=== PATIENT | female | born 1960 | race Caucasian/White ===

== ENCOUNTER 2019-01-08 11:23 | Emergency (ER) | payer OTHER ==
[2019-01-08 11:28] VITALS: BP 135/87; PULSE 104; TEMP 101.8; BMI 20.4
[2019-01-08] MEDS ORDERED: ACETAMINOPHEN 500 MG TABLET (FP) PO ONE (11:55)
[2019-01-08] MEDS ORDERED: ACETAMINOPHEN 325 MG TABLET (FP) ONE (11:57)
--- NOTE | 2019-01-08 12:01 | PDOC ---
History of Present Illness - General Chief Complaint: Cold Symptoms Stated Complaint: FEVER/SORE THROAT/ COUGH Time Seen by Provider: 01/08/19 11:42 - History of Present Illness Initial Comments: 01/08/19 11:59 58-year-old female with a past medical history of HIV presents for evaluation of cough fever 3 days. She has associated headaches with coughing and increased cough when she lays flat. Past History - Past Medical History Allergies/Adverse Reactions: Allergies Allergy/AdvReac Type Severity Reaction Status Date / Time No Known Allergies Allergy Verified 01/08/19 11:28 Home Medications: Ambulatory Orders Amox-Tr/K Cl [Augmentin - 875Mg Tablet] 1 tab PO BID #20 tablet 01/08/19 Guaifenesin Dm [Mucinex Dm -] 1 tab PO BID #60 tab.er.12h 01/08/19 Sulfamethoxazole/Trimethoprim [Bactrim Ds -] 1 tab PO BID #14 tablet 01/08/19 COPD: No Hypercholesterolemia: Yes Other medical history: HIV - Immunization History Immunization Up to Date: No - Suicide/Smoking/Psychosocial Hx Smoking History: Current every day smoker Have you smoked in the past 12 months: Yes Number of Cigarettes Smoked Daily: 5 Information on smoking cessation initiated: No Hx Alcohol Use: No Drug/Substance Use Hx: No Review of Systems - Review of Systems Constitutional: Yes: Fever Respiratory: Yes: Cough Neurological: Yes: Headache *Physical Exam - Vital Signs Last Vital Signs Temp Pulse Resp BP Pulse Ox 101.8 F H 104 H 16 135/87 97 01/08/19 11:26 01/08/19 11:26 01/08/19 11:26 01/08/19 11:26 01/08/19 11:26 - Physical Exam Comments: 01/08/19 12:01 HEAD: NC/AT EYES: Conjuntiva clear Ears: Canals and TM's normal NOSE: No d/c THROAT: Moist mucous membrances, oral pharanx clear, uvula midline NECK: Supple without adenopathy CARDIAC: S1 S2 LUNGS: Coarse rhonchi bilateral bases ABDOMEN: Soft NT ND MS: Full ROM in all joints without edema NEUROLOGIC: No gross sensory or motor deficits, NVID SKIN: Normal color and temperature no lesions or rashes ED Treatment Course - RADIOLOGY Radiology Studies Ordered: Category Date Time Status CHEST PA & LAT [RAD] Stat Radiology 01/08/19 11:58 Ordered Medical Decision Making - Medical Decision Making 01/08/19 12:16 HIV positive patient with normal CD4 count according to her last check. No discrete infiltrate on chest x-ray will treat for bronchitis with Bactrim and Augmentin as well as Mucinex have her follow-up with her PCP *DC/Admit/Observation/Transfer Diagnosis at time of Disposition: Acute bacterial bronchitis - Discharge Dispostion Disposition: HOME Condition at time of disposition: Stable Decision to Admit order: No - Referrals Referrals: Dennis Baptiste MD [Staff Physician] - - Patient Instructions Printed Discharge Instructions: Acute Bronchitis, DI for Bronchiolitis Additional Instructions: Please take the antibiotics and Mucinex as directed. Return to the emergency room for worsening symptoms and follow-up with your primary care physician in 1- 2 days without fail. Tylenol and Motrin as directed for fevers - Post Discharge Activity
== END 2019-01-08 12:49 | disposition home or self-care (01) ==
LOC: JERFT 11:23
DX: J40 Bronchitis, not specified as acute or chronic (principal); Z21 Asymptomatic human immunodeficiency virus [HIV] infection status
CPT/HCPCS: 71046-TC-FY; 99281-25

== ENCOUNTER 2019-01-09 21:25 | Inpatient (IN) | payer OTHER ==
--- NOTE | 2019-01-09 21:34 | PDOC ---
History of Present Illness - General Chief Complaint: Respiratory Stated Complaint: SENT BY PCP - History of Present Illness Initial Comments: The pt is a 58F w/ a history of HIV presents for evaluation of 4-5 days of fevers (Tm 102), malaise, and cough. She was evaluated 1.5 days ago and prescribed Augmentin and Bactrim for a RUL PNA. She reports persistent fevers to 102F at home despite Ibuprofen use (400mg Q4H last @ 1999). She reports being compliant w/ her HIV medications, denies ever having to be on ppx meds, reports her most recent CD4 to be 1000 (3 months ago). Denies vision changes, chest pain, vomiting, diarrhea, dysuria, hematuria, or blood in his stool. 01/09/19 21:33 Past History - Past Medical History Allergies/Adverse Reactions: Allergies Allergy/AdvReac Type Severity Reaction Status Date / Time No Known Allergies Allergy Verified 01/08/19 11:28 Home Medications: Ambulatory Orders Amox-Tr/K Cl [Augmentin - 875Mg Tablet] 1 tab PO BID #20 tablet 01/08/19 Guaifenesin Dm [Mucinex Dm -] 1 tab PO BID #60 tab.er.12h 01/08/19 Sulfamethoxazole/Trimethoprim [Bactrim Ds -] 1 tab PO BID #14 tablet 01/08/19 Aspirin [ASA -] 81 mg PO DAILY 01/10/19 Darunavir Ethanolate [Prezista] 800 mg PO DAILY 01/10/19 Raltegravir [Isentress -] 400 mg PO BID 01/10/19 Ritonavir [Norvir] 100 mg PO DAILY 01/10/19 Rosuvastatin [Crestor -] 5 mg PO DAILY 01/10/19 Valacyclovir HCl [Valtrex] 500 mg PO DAILY 01/10/19 clonazePAM [Klonopin -] 0.5 mg PO TID 01/10/19 COPD: No Hypercholesterolemia: Yes - Immunization History Immunization Up to Date: No - Suicide/Smoking/Psychosocial Hx Smoking History: Never smoked Have you smoked in the past 12 months: No Number of Cigarettes Smoked Daily: 5 Information on smoking cessation initiated: No Hx Alcohol Use: No Drug/Substance Use Hx: No Review of Systems - Review of Systems Able to Perform ROS?: Yes Comments:: GENERAL/CONSTITUTIONAL: No fever or chills. No weakness HEAD, EYES, EARS, NOSE AND THROAT: No change in vision. No ear pain or discharge. No sore throat CARDIOVASCULAR: No chest pain or shortness of breath RESPIRATORY: Denies cough, hemoptysis GASTROINTESTINAL: No nausea, vomiting, diarrhea or constipation GENITOURINARY: No dysuria, frequency, or change in urination MUSCULOSKELETAL: No joint or muscle swelling or pain. No neck or back pain SKIN: No rash NEUROLOGIC: No headache, vertigo, loss of consciousness, or change in strength/ sensation ENDOCRINE: No increased thirst. No abnormal weight change HEMATOLOGIC/LYMPHATIC: No anemia, easy bleeding, or history of blood clots ALLERGIC/IMMUNOLOGIC: No hives or skin allergy 01/09/19 21:34 Is the patient limited Wolof proficient: No *Physical Exam - Vital Signs Last Vital Signs Temp Pulse Resp BP Pulse Ox 100.4 F H 99 H 18 141/74 95 01/09/19 21:31 01/09/19 21:31 01/09/19 21:31 01/09/19 21:31 01/09/19 21:31 - Physical Exam Comments: GENERAL: Awake, alert, and oriented to person/place/time, in no acute distress HEAD: No signs of trauma, normocephalic, atraumatic EYES: PERRLA, EOMI, sclera anicteric, conjunctiva clear ENT: Hearing grossly normal, nares patent, oropharynx clear without exudates. No uvular deviation. Moist mucosa LUNGS: No distress, speaks in full sentences, clear to auscultation bilaterally HEART: Regular rate and rhythm, normal S1 and S2, no murmurs appreciated, peripheral pulses normal and equal bilaterally ABDOMEN: Soft, nontender, normoactive bowel sounds. No guarding, no rebound EXTREMITIES: Normal inspection, Normal range of motion, no edema. No clubbing or cyanosis NEUROLOGICAL: Cranial nerves II through XII grossly intact. Normal speech, normal gait, no focal sensorimotor deficits SKIN: Warm, Dry 01/09/19 21:34 ED Treatment Course - LABORATORY CBC & Chemistry Diagram: 01/09/19 22:50 01/09/19 22:50 Medical Decision Making - Medical Decision Making The pt is a 58F w/ a history of HIV on HAART who presents for evaluation of cough, malaise, and fevers (Tm 102) concerning for PNA/failure of outpt therapy ED Course CMP, CBC, Blood cultures, Quantiferon gold CTA chest to evaluate for PNA, cavitary lesion, PE 01/09/19 22:54 CT w/ b/l multifocal PNA No leukocytosis No anemia Lytes wnl LFTs unremarkable No ERICKA Ceftriaxone and Azithromycin for PNA Plan for admission for IV abx Pt signed out to Admitting team 01/10/19 01:32 *DC/Admit/Observation/Transfer Diagnosis at time of Disposition: Cough Fever Qualifiers: Fever type: unspecified Qualified Code(s): R50.9 - Fever, unspecified Pneumonia Qualifiers: Pneumonia type: due to unspecified organism Laterality: bilateral Lung location : unspecified part of lung Qualified Code(s): J18.9 - Pneumonia, unspecified organism - Discharge Dispostion Condition at time of disposition: Fair Decision to Admit order: Yes - Referrals - Patient Instructions - Post Discharge Activity
[2019-01-09] MEDS ORDERED: ONDANSETRON *ODT* 4 MG TABLET SL ONE (21:56)
[2019-01-09] MEDS ORDERED: ACETAMINOPHEN 325 MG TABLET (FP) PO ONE (21:56)
[2019-01-09] MEDS ORDERED: LACTATED RINGERS SOLUTION 1000 ML INFUS.BAG IV ONE (22:05)
--- NOTE | 2019-01-09 22:34 | PDOC ---
Documentation entered by Sergio Sharma SCRIBE, acting as scribe for Gris Neely DO. Gris Neely DO: This documentation has been prepared by the Zachary holly Xhesika, SCRIBE, under my direction and personally reviewed by me in its entirety. I confirm that the documentation accurately reflects all work, treatment, procedures, and medical decision making performed by me. Attending Attestation - Resident Resident Name: Lio Maynard - ED Attending Attestation I have performed the following: I have examined & evaluated the patient, The case was reviewed & discussed with the resident, I agree w/resident's findings & plan, Exceptions are as noted - HPI HPI: 01/09/19 22:34 The patient is a 58 year old female, with a significant PMH of HIV and HLD who presents to the emergency department with 5 days of cough, headaches, malaise, and a fever of 102. The patient states she is endorsing productive white/yellow sputum. The patient states she was seen here in the ED yesterday for similar symptoms, x-ray showed RUL infiltrate and was started on augmentin and bactrim. The patient states her symptoms have not subsided which prompted her arrival to theED today. The patient denies chest pain, shortness of breath,and dizziness. Denies chills , nausea, vomit, diarrhea and constipation. Denies dysuria, frequency, urgency and hematuria. Allergies: NKDA Social history: Current everyday smoker - Physicial Exam PE: 01/09/19 22:34 GENERAL: Awake, alert, and fully oriented, in no acute distress HEAD: No signs of trauma EYES: EOMI, sclera anicteric, conjunctiva clear ENT: hearing grossly normal, nares patent, oropharynx clear without exudates. Moist mucosa NECK: Normal ROM, supple, no lymphadenopathy, JVD, or masses LUNGS: Breath sounds equal, clear to auscultation bilaterally. No wheezes, and no crackles HEART: (+) tachycardic. Regular rate and rhythm, normal S1 and S2, no murmurs, rubs or gallops ABDOMEN: Soft, nontender, normoactive bowel sounds. No guarding, no rebound. No masses EXTREMITIES: Normal range of motion, no edema. No clubbing or cyanosis. No cords , erythema, or tenderness NEUROLOGICAL: Cranial nerves II through XII grossly intact. Normal speech, normal gait SKIN: Warm, Dry, normal turgor, no rashes or lesions noted. 01/09/19 22:36 - Medical Decision Making 01/09/19 22:30 I, Dr. Gris Neely, DO, attest that this document has been prepared under my direction and personally reviewed by me in its entirety. I further attest, that it accurately reflects all work, treatment, procedures and medical decision -making performed by me. 01/09/19 22:30 58yo female with hx of HIV + on HAART therapy with fever x 5 days and cough - productive sputum -white and yellow sputum -no blood in sputum -no hemoptysis -no cp -no wt loss -does c/o night sweats and having to change her clothing at night -pt dx with RUL infiltrate started on bactrim and amox yesterday -returns for persistent fevers today to 102 -pt states she took 2 doses of her abx since leaving the ED yesterday -all docs at [facility] -will send labs, ct chest -pt states viral load ~1000 -states cd4 was >250, can't remember exact number -will send cultures -will monitor and reassess 01/10/19 00:57 pt with RUL infiltrate on ct imaging will start iv abx cultures sent microblog sent to magdy for admission 01/10/19 01:31 ct shows multiple b/l consolidations consistent with pna 01/10/19 01:45 resident discussed the case with magdy
[2019-01-09] MEDS ORDERED: ONDANSETRON *ODT* 4 MG TABLET ONE (22:53)
[2019-01-09] MEDS ORDERED: SULFAMETHOXAZOLE/TRIMETHOPRIM 800MG/160MG D.S. TABLET PO ONE (22:57)
[2019-01-09] MEDS ORDERED: AMOX TR/POT CLAV 500MG/125MG TABLETS (FP) PO ONE (22:57)
[2019-01-09 22:59] LABS: BASO % 0.4 % (0-2.0); EOS % 1.4 % (0-4.5); HEMATOCRIT 37.5 % (32.4-45.2); HEMOGLOBIN 12.7 GM/dL (10.7-15.3); LYMPH % 20.4 % (8-40); MCH 32.6 pg (25.7-33.7); MCHC 33.9 g/dl (32.0-36.0); MEAN CELL VOLUME 96.1 fl (80-96); NEUT % 68.8 % (42.8-82.8); PLATELET COUNT 148 K/MM3 (134-434); RDW 12.9 % (11.6-15.6); WHITE BLOOD COUNT 7.3 K/mm3 (4.0-10.0)
[2019-01-09 23:27] LABS: ALBUMIN 3.4 g/dl (3.4-5.0); BILIRUBIN,TOTAL 0.3 mg/dL (0.2-1); BLOOD UREA NITROGEN 10.7 mg/dL (7-18); CALCIUM 8.5 mg/dL (8.5-10.1); CREATININE 0.9 mg/dL (0.55-1.3); POTASSIUM 3.8 mmol/L (3.5-5.1); TOT PROT 6.4 g/dl (6.4-8.2)
[2019-01-10] MEDS ORDERED: AZITHROMYCIN IVPB 500 MG in DEXTROSE 5%-WATER - 250 ML IVPB ONE (00:56)
[2019-01-10] MEDS ORDERED: CEFTRIAXONE 1 GM in DEXTROSE 5%-WATER - 100 ML IVPB ONE (00:56)
[2019-01-10] MEDS ORDERED: AZITHROMYCIN IVPB 500 MG/250 ML BAG IVPB ONE (01:43)
[2019-01-10] MEDS ORDERED: CEFTRIAXONE 1 GM/50 ML BAG ONE (01:43)
--- NOTE | 2019-01-10 02:04 | PN ---
Teaching Attending Note Name of Resident: Nghia Grimm ATTENDING PHYSICIAN STATEMENT I saw and evaluated the patient. I reviewed the resident's note and discussed the case with the resident. I agree with the resident's findings and plan as documented. SUBJECTIVE: Patient is a 58 year old woman with a PMH of Tobacco use, HIV disease and HLD who presents to the ER with 5 days of cough, headaches, malaise, and a fever of 102. The patient states she is has cough productive white/yellow sputum. She was seen here in the ER yesterday for similar symptoms, x-ray showed RUL infiltrate and was started on augmentin and bactrim. The patient states her symptoms have not subsided. The patient denies chest pain, shortness of breath, and dizziness. Denies chills, nausea, vomit, diarrhea and constipation. Denies dysuria, frequency, urgency and hematuria. OBJECTIVE: Alert Vital Signs Period Temp Pulse Resp BP Sys/Sarmiento Pulse Ox Last 24 Hr 100.4 F 99 18 141/74 95-96 HEENT: No Jaundice, eye redness or discharge, PERRLA, EOMI. Normocephalic, atraumatic. External ears are normal and hearing is grossly intact. No nasal discharge. Neck: Supple, nontender. No palpable adenopathy or thyromegaly. No JVD Chest: Good effort. Clear to auscultation and percussion. Heart: Regular. No S3, rub or murmur Abdomen: Not distended, soft, nontender and no HSM. No rebound or guarding. Normal bowel sounds. Ext: Peripheral pulses intact. No leg edema. Skin: Warm and dry. No petechiae, rash or ecchymosis. Neuro: Alert. Oriented x3. CN 2-12 grossly intact. Sensation grossly intact in all four extremities and DTR are symmetric. Psych: Appropriate mood and affect. Good insight. Current Medications Generic Name Dose Route Start Last Admin Trade Name Freq PRN Reason Stop Dose Admin Albuterol Sulfate 1 amp 01/10/19 03:38 Ventolin 0.083% Nebulizer Soln - NEB Q6H PRN SHORT OF BREATH/WHEEZING Darunavir 800 mg 01/10/19 10:00 Prezista - PO DAILY [facility] Enoxaparin Sodium 40 mg 01/10/19 10:00 Lovenox - SQ DAILY [facility] Azithromycin 500 mg in 250 mls @ 250 mls/hr 01/10/19 10:00 Zithromax 500mg Ivpb (Pre-Docked) IVPB DAILY [facility] Ceftriaxone Sodium 1 gm/ 50 mls @ 100 mls/hr 01/10/19 10:00 Dextrose IVPB DAILY [facility] Protocol Non-Formulary Medication 100 mg 01/10/19 10:00 Ritonavir [Norvir] PO DAILY [facility] Prednisone 40 mg 01/10/19 10:00 Deltasone - PO DAILY [facility] Raltegravir 400 mg 01/10/19 10:00 Isentress - PO BID [facility] Rosuvastatin Calcium 5 mg 01/10/19 10:00 Crestor - PO DAILY [facility] Home Medications Medication Instructions Recorded Amox-Tr/K Cl [Augmentin - 875Mg 1 tab PO BID #20 tablet 01/08/19 Tablet] Guaifenesin Dm [Mucinex Dm -] 1 tab PO BID #60 tab.er.12h 01/08/19 Sulfamethoxazole/Trimethoprim 1 tab PO BID #14 tablet 01/08/19 [Bactrim Ds -] Aspirin [ASA -] 81 mg PO DAILY 01/10/19 Darunavir Ethanolate [Prezista] 800 mg PO DAILY 01/10/19 Raltegravir [Isentress -] 400 mg PO BID 01/10/19 Ritonavir [Norvir] 100 mg PO DAILY 01/10/19 Rosuvastatin [Crestor -] 5 mg PO DAILY 01/10/19 Valacyclovir HCl [Valtrex] 500 mg PO DAILY 01/10/19 clonazePAM [Klonopin -] 0.5 mg PO TID 01/10/19 Abnormal Lab Results 01/09/19 01/09/19 22:50 22:50 MCV 96.1 H Anion Gap 6 L ASSESSMENT AND PLAN: 1. Pneumonia - CTA showed bilateral multifocal pneumonia, but no pulmonary embolism. Being treated with Duoneb, Prednisone, Rocephin and Azithromycin. Send urine for legionella antigen and sputum for culture. Continue HAART and comprehensive HIV care. Consult ID. Obtain recent viral load/CD4 count result from her PCP. 2. Tobacco Use Counseled on risks associated with tobacco use. We will provide patient all the necessary assistance to facilitate smoking cessation and prescribe Nicotine patch. 3. DVT prophylaxis - Lovenox 40 mg SQ q 24 hours. 4. Advance directives - Full code
--- NOTE | 2019-01-10 03:33 | HP ---
CHIEF COMPLAINT: productive cough PCP: HISTORY OF PRESENT ILLNESS: 58F of pmh of HLD, HIV(contracted from in ), claims to be compliant with HAART medications(Ritonavir, Raltegravir, Darunavir), h/o TB(dx , received full treatment), h/o shingles(2000), genital/oral herpes, h/o prior episode of PNA; presented to the ED on 01/08/19 with complaint of yellow sputum productive cough x4d with associated DORADO/fever/chills x5d. Has sick contact, son with cough. Denies recent travel. Has calf spasms with prolonged walking. Denies CP, SOB, abd pain, NVD, dysuria, constipation. Had colonoscopy in 2018 with no abn, instructed to return in 10ys. ER course was notable for: (1) Tmax 100.4F (2) s/p ceftriaxone, s/p azithromycin (3) BCX collected (4) Quantiferon collected Recent Travel: none PAST MEDICAL HISTORY: HTN, HLD, HIV, TB, PNA PAST SURGICAL HISTORY: -"eye" surgery in the 1960s -tubal ligation in the Social History: Smokin cig/daily for 10ys Alcohol: social Drugs: denies Family History: DM and HTN; no malignancy Allergies: denies No Known Allergies Allergy (Verified 01/08/19 11:28) HOME MEDICATIONS: Home Medications Medication Instructions Recorded Amox-Tr/K Cl [Augmentin - 875Mg 1 tab PO BID #20 tablet 01/08/19 Tablet] Guaifenesin Dm [Mucinex Dm -] 1 tab PO BID #60 tab.er.12h 01/08/19 Sulfamethoxazole/Trimethoprim 1 tab PO BID #14 tablet 01/08/19 [Bactrim Ds -] Aspirin [ASA -] 81 mg PO DAILY 01/10/19 Darunavir Ethanolate [Prezista] 800 mg PO DAILY 01/10/19 Raltegravir [Isentress -] 400 mg PO BID 01/10/19 Ritonavir [Norvir] 100 mg PO DAILY 01/10/19 Rosuvastatin [Crestor -] 5 mg PO DAILY 01/10/19 Valacyclovir HCl [Valtrex] 500 mg PO DAILY 01/10/19 clonazePAM [Klonopin -] 0.5 mg PO TID 01/10/19 REVIEW OF SYSTEMS CONSTITUTIONAL: positive for fever, chills, DORADO Absent: diaphoresis, generalized weakness, malaise, loss of appetite, weight change HEENT: Absent: rhinorrhea, nasal congestion, visual changes CARDIOVASCULAR: Absent: chest pain, palpitations, irregular heart rate, lightheadedness, peripheral edema RESPIRATORY: positive for productive cough Absent: cough, shortness of breath, dyspnea with exertion, orthopnea, wheezing, stridor, hemoptysis GASTROINTESTINAL: Absent: abdominal pain, abdominal distension, nausea, vomiting, diarrhea, constipation, hematochezia GENITOURINARY: Absent: dysuria, frequency, urgency, hesitancy, hematuria, flank pain, genital pain MUSCULOSKELETAL: calf spasm Absent: joint swelling, back pain, knee pain SKIN: Absent: rash HEMATOLOGIC/IMMUNOLOGIC: Absent: easy bleeding, lymphadenopathy, frequent infections ENDOCRINE: Absent: unexplained weight gain, unexplained weight loss NEUROLOGIC: Absent: headache, dizziness, unsteady gait, seizure PSYCHIATRIC: Absent: anxiety, depression PHYSICAL EXAMINATION Vital Signs - 24 hr 01/09/19 21:31 Temperature 100.4 F H Pulse Rate 99 H Respiratory 18 Rate Blood Pressure 141/74 O2 Sat by Pulse 95 Oximetry (%) GENERAL: Awake, alert, and fully oriented, in no acute distress. HEAD: Normal with no signs of trauma. No temporal wasting EYES: Pupils equal, round and reactive to light, extraocular movements intact, sclera anicteric, conjunctiva clear. EARS, NOSE, THROAT: Ears normal, nares patent. Moist mucous membranes. Tongue is w/o thrush NECK: Normal range of motion, supple without lymphadenopathy, or masses. LUNGS: B/l expiratory wheezes, Right lung w/ mild crackles. No accessory muscle use. HEART: Regular rate and rhythm, normal S1 and S2 without murmur, rub or gallop. ABDOMEN: Soft, nontender, not distended, no guarding, no rebound. Infraumbilical scar is well-healed MUSCULOSKELETAL: Normal range of motion at all joints. No bony deformities or tenderness. No CVA tenderness. UPPER EXTREMITIES: warm, well-perfused. No cyanosis. No peripheral edema. LOWER EXTREMITIES: 2+ pulses, warm, well-perfused. No calf tenderness. No peripheral edema. NEUROLOGICAL: Grossly normal. Normal speech. PSYCHIATRIC: Cooperative. Good eye contact. Appropriate mood and affect. SKIN: Warm, dry, normal turgor, no rashes or lesions noted. Laboratory Results - last 24 hr 01/09/19 01/09/19 22:50 22:50 WBC 7.3 RBC 3.90 Hgb 12.7 Hct 37.5 MCV 96.1 H MCH 32.6 MCHC 33.9 RDW 12.9 Plt Count 148 MPV 8.0 Absolute Neuts (auto) 5.0 Neutrophils % 68.8 Lymphocytes % 20.4 Monocytes % 9.0 Eosinophils % 1.4 Basophils % 0.4 Nucleated RBC % 0 Sodium 136 Potassium 3.8 Chloride 104 Carbon Dioxide 27 Anion Gap 6 L BUN 10.7 Creatinine 0.9 Est GFR (CKD-EPI)AfAm 81.11 Est GFR (CKD-EPI)NonAf 69.99 Random Glucose 106 Calcium 8.5 Total Bilirubin 0.3 AST 20 ALT 17 Alkaline Phosphatase 53 Total Protein 6.4 Albumin 3.4 ASSESSMENT/PLAN: 58F with pmh of HLD, HIV(contracted from in ), claims to be compliant with HAART medications(Ritonavir, Raltegravir, Darunavir), h/o TB(dx , received full treatment), h/o shingles(2000), genital/oral herpes, h/o prior episode of PNA; now admitted for cough likely 2/2 PNA. # Right upper lobe PNA >CXR(01/08/19): right upper lobe infiltrate >CTA Chest(01/10/19): Right upper lobe infiltrate - dc home Augmentin, bactrim - cw azithromycin, ceftriaxone - prednisone 40mg QD - albuterol PRN - fu Quantiferon Gold # HIV - cw Ritonavir, Raltegravir, Darunavir NEURO # no active issues at this time CARDIO # chronic HLD - cw home rosuvastatin - monitor vitals PULM # RUL PNA -- addressed above GI # no active issues FEN - regular diet - replete lytes PRN RENAL - monitor I/Os HEME # HIV -- addressed above # chronic herpes(oral/genital) - cw home valacyclovir DISPO - likely home pending resolution of above issues Nghia Grimm DO PGY-1 Medicine, PM Float [id number] 01/10/19 Visit type - Emergency Visit Emergency Visit: Yes ED Registration Date: 01/10/19 Care time: The patient presented to the Emergency Department on the above date and was hospitalized for further evaluation of their emergent condition. - New Patient This patient is new to me today: Yes Date on this admission: 01/10/19 - Critical Care Critical Care patient: No
[2019-01-10 05:24] VITALS: BMI 19.3
--- NOTE | 2019-01-10 07:57 | CON.ID ---
Consult Consult Specialty:: infectious disease Referred by:: hospitalist Reason for Consultation:: fever, cough - History of Present Illness Chief Complaint: fever and cough History of Present Illness: 58 yo female with well controlled HIV, history of positive PPD (porphylaxed with INH many years ago), +cigarette somoker with 5 day history of fever and cough no hemoptysis no nausea or vomiting no diarrhea reports she is followed at [facility] by Dr Prasad- on isentress/norvir and prizista - tcells "high", viral load undetectable RUL infiltrate on cxray and ct scan reports recent sick contact- brother who came to visit had a cold treated hep C denies recent hospitalizations denies PCP she was seen in ED on 01/08 with fever and cough, discharged on augmentin and bactrim returned the next day with persistent fever and cough - History Source History Provided By: Patient Limitations to Obtaining History: Poor Historian - Past Medical History Cardio/Vascular: Yes: Hyperlipdemia Pulmonary: Yes: Pneumonia (2 years ago at [facility]) Hepatobiliary: Yes: Hepatitis C ...: No Infectious Disease: Yes: HIV (sexual contact diagnosis 1991), Other (HSV) - Past Surgical History Past Surgical History: Yes: Tubal Ligation Additional Surgical History: eye surgery - Alcohol/Substance Use Hx Alcohol Use: No History of Substance Use: reports: None - Smoking History Smoking history: Current every day smoker Have you smoked in the past 12 months: Yes Aproximately how many cigarettes per day: 5 - Social History Usual Living Arrangement: With Child ADL: Independent Place of : [place] History of Recent Travel: Yes ([place] in September) Home Medications - Allergies Allergies/Adverse Reactions: Allergies Allergy/AdvReac Type Severity Reaction Status Date / Time No Known Allergies Allergy Verified 01/08/19 11:28 - Home Medications Home Medications: Ambulatory Orders Amox-Tr/K Cl [Augmentin - 875Mg Tablet] 1 tab PO BID #20 tablet 01/08/19 Guaifenesin Dm [Mucinex Dm -] 1 tab PO BID #60 tab.er.12h 01/08/19 Sulfamethoxazole/Trimethoprim [Bactrim Ds -] 1 tab PO BID #14 tablet 01/08/19 Aspirin [ASA -] 81 mg PO DAILY 01/10/19 Darunavir Ethanolate [Prezista] 800 mg PO DAILY 01/10/19 Raltegravir [Isentress -] 400 mg PO BID 01/10/19 Ritonavir [Norvir] 100 mg PO DAILY 01/10/19 Rosuvastatin [Crestor -] 5 mg PO DAILY 01/10/19 Valacyclovir HCl [Valtrex] 500 mg PO DAILY 01/10/19 clonazePAM [Klonopin -] 0.5 mg PO TID 01/10/19 Family Disease History - Family Disease History Family Disease History: CA: Father (kidney) Review of Systems - Review of Systems Constitutional: reports: Fever. denies: Loss of Appetite, Night Sweats Eyes: reports: No Symptoms HENT: reports: No Symptoms. denies: Difficult Swallowing Neck: reports: No Symptoms Cardiovascular: reports: No Symptoms. denies: Chest Pain, Edema, Palpitations Respiratory: reports: Cough. denies: Hemoptysis Gastrointestinal: reports: No Symptoms Genitourinary: reports: No Symptoms Integumentary: reports: No Symptoms Neurological: reports: No Symptoms Physical Exam Vital Signs: Vital Signs Temperature 100.8 F H 01/10/19 05:00 Pulse Rate 76 01/10/19 05:00 Respiratory Rate 18 01/10/19 05:00 Blood Pressure 114/70 01/10/19 05:00 O2 Sat by Pulse Oximetry (%) 97 01/10/19 03:50 Constitutional: Yes: Well Nourished, No Distress, Calm, Other (coughing) Eyes: Yes: Conjunctiva Clear HENT: Yes: Atraumatic, Normocephalic. No: Pharyngeal Erythema, Thrush Neck: Yes: Supple, Trachea Midline. No: Lymphadenopathy Cardiovascular: Yes: Regular Rate and Rhythm Respiratory: Yes: Rhonchi (bilaterally) Gastrointestinal: Yes: Normal Bowel Sounds, Soft ...Rectal Exam: Yes: Deferred Musculoskeletal: Yes: WNL Extremities: Yes: WNL Edema: No Integumentary: Yes: WNL Psychiatric: Yes: Alert, Oriented Labs: CBC, BMP 01/09/19 22:50 Laboratory Tests 01/09/19 22:50 WBC 7.3 Hgb 12.7 Hct 37.5 Plt Count 148 Imaging - Results Chest X-ray: Report Reviewed, Image Reviewed (RUL infiltrate) Cat Scan: Pending (RUL infiltrate), Image Reviewed Problem List - Problems (1) Fever Code(s): R50.9 - FEVER, UNSPECIFIED Qualifiers: Fever type: unspecified Qualified Code(s): R50.9 - Fever, unspecified (2) Pneumonia Code(s): J18.9 - PNEUMONIA, UNSPECIFIED ORGANISM Qualifiers: Pneumonia type: due to unspecified organism Laterality: bilateral Lung location: unspecified part of lung Qualified Code(s): J18.9 - Pneumonia, unspecified organism (3) HIV (human immunodeficiency virus infection) Code(s): B20 - HUMAN IMMUNODEFICIENCY VIRUS [HIV] DISEASE Assessment/Plan RUL infiltrate in patient with positive PPD by history and HIV suspect CAP given acuity of symptoms but would continue AFB isolation and obtain sputum AFB/NAAT continue rocephin/zithromax check ekg (qt) f/u cultures check urinary antigen legionella/pneumococcal f/u cultures blood and sputum continue ART- continue valtrex
[2019-01-10] MEDS ORDERED: DEXTROSE 5%-WATER - 50 ML IVPB ONE (10:15)
[2019-01-10] MEDS ORDERED: cefTRIAXone SODIUM 1 GM VIAL ONE (10:15)
[2019-01-10] MEDS: CEFTRIAXONE 1 GM in DEXTROSE 5%-WATER - 50 ML IVPB SCH (10:18)
[2019-01-10] MEDS: ROSUVASTATIN CA 5 MG TABLET (FP) PO SCH (10:18)
[2019-01-10] MEDS: predniSONE 20 MG TABLET (UD) PO SCH (10:18)
[2019-01-10] MEDS: ENOXAPARIN NA (PORCINE) 40 MG/0.4 ML DISP.SYRIN SQ SCH (10:18)
[2019-01-10] MEDS: RALTEGRAVIR POTASSIUM 400 MG TAB PO SCH ×2 (10:19→22:05)
[2019-01-10] MEDS: valACYclovir HCL 500 MG TABLET (FP) PO SCH (10:19)
[2019-01-10] MEDS: RITONAVIR 100 MG TABLET PO SCH (10:19)
[2019-01-10] MEDS: DARUNAVIR ETHANOLATE 800 MG TAB PO SCH (10:20)
[2019-01-10] MEDS ORDERED: PT OWN MED DRAWER 7, Y5N ONE ×3 (10:33→21:51)
[2019-01-10] MEDS: AZITHROMYCIN IVPB 500 MG/250 ML BAG IVPB SCH (11:20)
--- NOTE | 2019-01-10 16:53 | EKG ---
Test Reason : Blood Pressure : / mmHG Vent. Rate : 090 BPM Atrial Rate : 090 BPM P-R Int : 164 ms QRS Dur : 098 ms QT Int : 354 ms P-R-T Axes : 073 078 074 degrees QTc Int : 433 ms POOR DATA QUALITY, INTERPRETATION MAY BE ADVERSELY AFFECTED NORMAL SINUS RHYTHM INCOMPLETE RIGHT BUNDLE BRANCH BLOCK NO PREVIOUS ECGS AVAILABLE Confirmed by CLARISSA BARNES MD ([id number]) on 01/10/2019 4:52:57 PM Referred By: Brendan LUGO Confirmed By:CLARISSA BARNES MD
[2019-01-11 07:16] LABS: HEMOGLOBIN 12.8 GM/dL (10.7-15.3); MCH 32.5 pg (25.7-33.7); MCHC 33.8 g/dl (32.0-36.0); MEAN CELL VOLUME 96.3 fl (80-96); MEAN PLT VOLUME 7.7 fl (7.5-11.1); PLATELET COUNT 201 K/MM3 (134-434); RBC 3.94 M/mm3 (3.60-5.2); RDW 13.2 % (11.6-15.6); WHITE BLOOD COUNT 8.3 K/mm3 (4.0-10.0)
[2019-01-11 08:03] LABS: BLOOD UREA NITROGEN 12.7 mg/dL (7-18); CREATININE 0.9 mg/dL (0.55-1.3); POTASSIUM 3.7 mmol/L (3.5-5.1)
[2019-01-11] MEDS ORDERED: cefTRIAXone SODIUM 1 GM VIAL ONE (09:52)
[2019-01-11] MEDS ORDERED: DEXTROSE 5%-WATER - 50 ML IVPB ONE (09:52)
[2019-01-11] MEDS: predniSONE 20 MG TABLET (UD) PO SCH (10:04)
[2019-01-11 10:05] LABS: CALCIUM 9.4 mg/dL (8.5-10.1); PHOSPHOROUS 4.2 mg/dL (2.5-4.9)
[2019-01-11] MEDS: ROSUVASTATIN CA 5 MG TABLET (FP) PO SCH (10:05)
[2019-01-11] MEDS: ENOXAPARIN NA (PORCINE) 40 MG/0.4 ML DISP.SYRIN SQ SCH (10:05)
[2019-01-11] MEDS: CEFTRIAXONE 1 GM in DEXTROSE 5%-WATER - 50 ML IVPB SCH (10:05)
[2019-01-11] MEDS: RALTEGRAVIR POTASSIUM 400 MG TAB PO SCH ×2 (10:06→21:40)
[2019-01-11] MEDS: RITONAVIR 100 MG TABLET PO SCH (10:06)
[2019-01-11] MEDS: valACYclovir HCL 500 MG TABLET (FP) PO SCH (10:07)
[2019-01-11] MEDS: DARUNAVIR ETHANOLATE 800 MG TAB PO SCH (10:07)
--- NOTE | 2019-01-11 10:18 | PN ---
Progress Note (short form) - Note Progress Note: still coughing sweats last night Vital Signs Period Temp Pulse Resp BP Sys/Sarmiento Pulse Ox Last 24 Hr 98.2 F-98.8 F 86-110 18-18 103-125/50-78 cor-rrr lungs bilateral rhonchi abd soft,nt ext no edema CBC, BMP 01/11/19 06:00 01/11/19 06:00 Microbiology 01/10/19 08:00 Sputum - Expectorated Gram Stain - Final 01/10/19 08:00 Sputum - Expectorated Sputum Culture - Preliminary NORMAL RESPIRATORY ALIA 01/10/19 14:20 Sputum - Expectorated AFB Smear Concentration - Preliminary 01/10/19 14:20 Sputum - Expectorated Mycobacterial Culture - Preliminary 01/09/19 22:50 Blood - Peripheral Venous Blood Culture - Preliminary NO GROWTH OBTAINED AFTER 24 HOURS, INCUBATION TO CONTINUE FOR 4 DAYS. 01/09/19 22:50 Blood - Peripheral Venous Blood Culture - Preliminary NO GROWTH OBTAINED AFTER 24 HOURS, INCUBATION TO CONTINUE FOR 4 DAYS. 01/10/19 10:00 Urine For Antigen Detection Legionella Antigen - Final 01/10/19 10:00 Urine For Antigen Detection Streptococcus pneumoniae Antigen (M - Final a/p pneumonia history of Positive PPD HIV continue rocephin zithromax continue to collect sputum afb continue afb isolation Problem List - Problems (1) Fever Code(s): R50.9 - FEVER, UNSPECIFIED Qualifiers: Fever type: unspecified Qualified Code(s): R50.9 - Fever, unspecified (2) Pneumonia Code(s): J18.9 - PNEUMONIA, UNSPECIFIED ORGANISM Qualifiers: Pneumonia type: due to unspecified organism Laterality: bilateral Lung location: unspecified part of lung Qualified Code(s): J18.9 - Pneumonia, unspecified organism (3) HIV (human immunodeficiency virus infection) Code(s): B20 - HUMAN IMMUNODEFICIENCY VIRUS [HIV] DISEASE
[2019-01-11] MEDS: AZITHROMYCIN IVPB 500 MG/250 ML BAG IVPB SCH (10:48)
--- NOTE | 2019-01-11 15:30 | PN ---
Physical Exam: SUBJECTIVE: Patient seen and examined this AM at the bedside. No acute events overnight. Patient not currently on O2 treatment. Pt had night sweats last PM as per ID. OBJECTIVE: Vital Signs Period Temp Pulse Resp BP Sys/Sarmiento Pulse Ox Last 24 Hr 98.2 F-98.8 F 72-87 18-20 110-132/78-82 GENERAL: The patient is awake, alert, and fully oriented, in no acute distress. HEAD: Normal with no signs of trauma. NECK: supple. LUNGS: Inspiratory and expiratory wheezes noticed on exam, worse in the bases HEART: Regular rate and rhythm, S1, S2 without murmur, rub or gallop. ABDOMEN: Soft, slght tenderness noted due to excessive coughing nondistended, normoactive bowel sounds, no guarding, no rebound, no masses. EXTREMITIES: warm, well-perfused, no edema. NEUROLOGICAL: Normal speech, gait not observed. PSYCH: Normal mood, normal affect. SKIN: Warm, dry, no rashes or lesions noted Laboratory Results - last 24 hr 01/10/19 01/11/19 01/11/19 05:44 06:00 06:00 WBC 7.3 8.3 RBC 3.94 Hgb 12.8 Hct 38.0 MCV 96.3 H MCH 32.5 MCHC 33.8 RDW 13.2 Plt Count 201 D MPV 7.7 Absolute Lymphs (auto) 1.6 Lymphocytes 22 Nucleated RBCs TNP Sodium 140 Potassium 3.7 Chloride 104 Carbon Dioxide 30 Anion Gap 6 L BUN 12.7 Creatinine 0.9 Est GFR (CKD-EPI)AfAm 81.11 Est GFR (CKD-EPI)NonAf 69.99 Random Glucose 106 Calcium 9.4 Phosphorus 4.2 Magnesium 3.0 H Absolute CD3 Count 1038 % CD3+ Lymphocytes 64.9 Absolute CD4 [place] 685 % CD4+ Lymphocyte 42.8 CD4/CD8 Ratio 1.81 % CD8+ Lymphocyte 23.6 Absolute CD8 Count 378 Active Medications Generic Name Dose Route Start Last Admin Trade Name Freq PRN Reason Stop Dose Admin Albuterol Sulfate 1 amp 01/10/19 03:38 Ventolin 0.083% Nebulizer Soln - NEB Q6H PRN SHORT OF BREATH/WHEEZING Darunavir 800 mg 01/10/19 10:00 01/11/19 10:07 Prezista - PO 800 mg DAILY IFEOMA Administration Enoxaparin Sodium 40 mg 01/10/19 10:00 01/11/19 10:05 Lovenox - SQ 40 mg DAILY IFEOMA Administration Azithromycin 500 mg in 250 mls @ 250 mls/hr 01/10/19 10:00 01/11/19 10:48 Zithromax 500mg Ivpb (Pre-Docked) IVPB 250 mls/hr DAILY IFEOMA Administration Ceftriaxone Sodium 1 gm/ 50 mls @ 100 mls/hr 01/10/19 10:00 01/11/19 10:05 Dextrose IVPB 100 mls/hr DAILY IFEOMA Administration Protocol Prednisone 40 mg 01/10/19 10:00 01/11/19 10:04 Deltasone - PO 40 mg DAILY IFEOMA Administration Raltegravir 400 mg 01/10/19 10:00 01/11/19 10:06 Isentress - PO 400 mg BID IFEOMA Administration Ritonavir 100 mg 01/10/19 10:00 01/11/19 10:06 Norvir - PO 100 mg DAILY IFEOMA Administration Rosuvastatin Calcium 5 mg 01/10/19 10:00 01/11/19 10:05 Crestor - PO 5 mg DAILY IFEOMA Administration Valacyclovir HCl 500 mg 01/10/19 10:00 01/11/19 10:07 Valtrex - PO 500 mg DAILY IFEOMA Administration ASSESSMENT/PLAN: 58 y/o F with a PMH of HLD, HIV(contracted from in ), claims to be compliant with HAART medications(Ritonavir, Raltegravir, Darunavir), h/o TB (dx , received full treatment), h/o shingles(2000), genital/oral herpes, h/o prior episode of PNA; presented to the ED on 01/08/19 initially c/o cough and fever for 3 days with associated headaches. Pt was sent home on augmentin and bactrim but returned a day later c/o of yellow sputum productive cough for 4 days with associated headache, fever, chills. #Pneumonia - pt is being treated with ceftriaxone and azithromycin (day 3). Was sent home on augmentin and bactrim initially so day 4 total abx. - UA legionella negative. Pneumococcal negative. Gram stain positive for Staph. - AFB sputum pending, quantiferon gold pending. - B.C.'s negative -CXR: Rt upper lobe infiltrate -CTA- B/l noncavitary pulmonary infiltrates and prominent atherosclerotic aortic mural irregularity. - afebrile normal wbc but will continue to monitor - continue airborne precautions #HIV - continue HAART meds #HSV oral and genital - continue with valtrex #HLD - Continue w crestor 5mg PO daily as prescribed #smoking - would recommend smoking cessation. #FEN -fluids not indicated at this time. - will continue to monitor for any electrolyte abnormalities. Prophylaxis: DVT- Lovenox 40mg SQ GI: not indicated at this time. Dispo: Spoke to [facility] ID department (Dr. Nghia Powell) and notified them abt this pt's status and what were doing as per patients daughters request. Spoke to family regarding patient status and treatment. Visit type - Emergency Visit Emergency Visit: No - New Patient This patient is new to me today: Yes Date on this admission: 01/11/19 - Critical Care Critical Care patient: No - Discharge Referral Referred to [facility] Med P.C.: No
--- NOTE | 2019-01-11 18:50 | PN ---
Teaching Attending Note Name of Resident: Amy Madden ATTENDING PHYSICIAN STATEMENT I saw and evaluated the patient. I reviewed the resident's note and discussed the case with the resident. I agree with the resident's findings and plan as documented. SUBJECTIVE: Patient stated she has been coughing and does not feel well in general. OBJECTIVE: Vital Signs Temperature 98.6 F 01/11/19 14:00 Pulse Rate 82 01/11/19 14:00 Respiratory Rate 20 01/11/19 14:00 Blood Pressure 107/70 01/11/19 14:00 O2 Sat by Pulse Oximetry (%) 97 01/10/19 03:50 GENERAL: The patient is awake, alert, and fully oriented, in no acute distress. HEAD: Normal with no signs of trauma. NECK: supple. LUNGS:positive for expiratory wheeze, decreased BS at the basis. HEART: Regular rate and rhythm, S1, S2 without murmur, rub or gallop. ABDOMEN: Soft, NT,ND, no guarding, no rebound, no masses. EXTREMITIES: warm, well-perfused, no edema. NEUROLOGICAL: Normal speech, gait not observed. PSYCH: Normal mood, normal affect. SKIN: Warm, dry, no rashes or lesions noted CBCD WBC 8.3 K/mm3 (4.0-10.0) 01/11/19 06:00 RBC 3.94 M/mm3 (3.60-5.2) 01/11/19 06:00 Hgb 12.8 GM/dL (10.7-15.3) 01/11/19 06:00 Hct 38.0 % (32.4-45.2) 01/11/19 06:00 MCV 96.3 fl (80-96) H 01/11/19 06:00 MCHC 33.8 g/dl (32.0-36.0) 01/11/19 06:00 RDW 13.2 % (11.6-15.6) 01/11/19 06:00 Plt Count 201 K/MM3 (134-434) D 01/11/19 06:00 MPV 7.7 fl (7.5-11.1) 01/11/19 06:00 CMP Sodium 140 mmol/L (136-145) 01/11/19 06:00 Potassium 3.7 mmol/L (3.5-5.1) 01/11/19 06:00 Chloride 104 mmol/L (98-107) 01/11/19 06:00 Carbon Dioxide 30 mmol/L (21-32) 01/11/19 06:00 Anion Gap 6 MMOL/L (8-16) L 01/11/19 06:00 BUN 12.7 mg/dL (7-18) 01/11/19 06:00 Creatinine 0.9 mg/dL (0.55-1.3) 01/11/19 06:00 Random Glucose 106 mg/dL (74-106) 01/11/19 06:00 Calcium 9.4 mg/dL (8.5-10.1) 01/11/19 06:00 Total Bilirubin 0.3 mg/dL (0.2-1) 01/09/19 22:50 AST 20 U/L (15-37) 01/09/19 22:50 ALT 17 U/L (13-61) 01/09/19 22:50 Alkaline Phosphatase 53 U/L (45-117) 01/09/19 22:50 Total Protein 6.4 g/dl (6.4-8.2) 01/09/19 22:50 Albumin 3.4 g/dl (3.4-5.0) 01/09/19 22:50 Current Medications Generic Name Dose Route Start Last Admin Trade Name Freq PRN Reason Stop Dose Admin Albuterol Sulfate 1 amp 01/10/19 03:38 Ventolin 0.083% Nebulizer Soln - NEB Q6H PRN SHORT OF BREATH/WHEEZING Darunavir 800 mg 01/10/19 10:00 01/11/19 10:07 Prezista - PO 800 mg DAILY IFEOMA Administration Enoxaparin Sodium 40 mg 01/10/19 10:00 01/11/19 10:05 Lovenox - SQ 40 mg DAILY IFEOMA Administration Azithromycin 500 mg in 250 mls @ 250 mls/hr 01/10/19 10:00 01/11/19 10:48 Zithromax 500mg Ivpb (Pre-Docked) IVPB 250 mls/hr DAILY IFEOMA Administration Ceftriaxone Sodium 1 gm/ 50 mls @ 100 mls/hr 01/10/19 10:00 01/11/19 10:05 Dextrose IVPB 100 mls/hr DAILY IFEOMA Administration Protocol Prednisone 40 mg 01/10/19 10:00 01/11/19 10:04 Deltasone - PO 40 mg DAILY IFEOMA Administration Raltegravir 400 mg 01/10/19 10:00 01/11/19 10:06 Isentress - PO 400 mg BID IFEOMA Administration Ritonavir 100 mg 01/10/19 10:00 01/11/19 10:06 Norvir - PO 100 mg DAILY IFEOMA Administration Rosuvastatin Calcium 5 mg 01/10/19 10:00 01/11/19 10:05 Crestor - PO 5 mg DAILY IFEOMA Administration Valacyclovir HCl 500 mg 01/10/19 10:00 01/11/19 10:07 Valtrex - PO 500 mg DAILY IFEOMA Administration Home Medications Medication Instructions Recorded Amox-Tr/K Cl [Augmentin - 875Mg 1 tab PO BID #20 tablet 01/08/19 Tablet] Guaifenesin Dm [Mucinex Dm -] 1 tab PO BID #60 tab.er.12h 01/08/19 Sulfamethoxazole/Trimethoprim 1 tab PO BID #14 tablet 01/08/19 [Bactrim Ds -] Aspirin [ASA -] 81 mg PO DAILY 01/10/19 Darunavir Ethanolate [Prezista] 800 mg PO DAILY 01/10/19 Raltegravir [Isentress -] 400 mg PO BID 01/10/19 Ritonavir [Norvir] 100 mg PO DAILY 01/10/19 Rosuvastatin [Crestor -] 5 mg PO DAILY 01/10/19 Valacyclovir HCl [Valtrex] 500 mg PO DAILY 01/10/19 clonazePAM [Klonopin -] 0.5 mg PO TID 01/10/19 ASSESSMENT AND PLAN: Patient is a 58yo female with well controlled HIV, history of positive PPD ( porphylaxed with INH many years ago), presented with 5 day history of fever and cough. #Acute RUL infiltrate with positive PPD ( prophylaxed with INH many years ago) by history and HIV . ID on the case. # CAP: On rocephin/zithromax; urinary antigen legionella/pneumococcal negative , f/u cultures blood and sputum # AFB: pending isolation and obtain sputum AFB/NAAT # HIV: continue ART ,continue valtrex. DVT Px: Lovenox
[2019-01-11] MEDS ORDERED: PT OWN MED DRAWER 7, Y5N ONE (23:03)
[2019-01-12] MEDS: ACETAMINOPHEN 325 MG TABLET (FP) PO PRN ×2 (03:26→21:39)
[2019-01-12] MEDS: ALBUTEROL SO4 0.083% IH SOL 2.5 MG/3 ML VIAL.NEB. NEB PRN ×3 (03:53→23:31)
[2019-01-12 08:19] LABS: BASO % 0.6 % (0-2.0); EOS % 0.3 % (0-4.5); HEMATOCRIT 32.8 % (32.4-45.2); HEMOGLOBIN 11.1 GM/dL (10.7-15.3); LYMPH % 43.6 % (8-40); MCH 32.5 pg (25.7-33.7); MCHC 33.9 g/dl (32.0-36.0); MEAN CELL VOLUME 95.8 fl (80-96); MEAN PLT VOLUME 7.9 fl (7.5-11.1); MONO % 10.1 % (3.8-10.2); NEUT % 45.4 % (42.8-82.8); RBC 3.42 M/mm3 (3.60-5.2); RDW 13.2 % (11.6-15.6); WHITE BLOOD COUNT 8.9 K/mm3 (4.0-10.0)
[2019-01-12 08:59] LABS: BLOOD UREA NITROGEN 15.4 mg/dL (7-18); CREATININE 0.7 mg/dL (0.55-1.3)
[2019-01-12 09:00] LABS: ALBUMIN 3.1 g/dl (3.4-5.0); BILIRUBIN,TOTAL 0.2 mg/dL (0.2-1); CALCIUM 9.1 mg/dL (8.5-10.1); POTASSIUM 3.8 mmol/L (3.5-5.1)
[2019-01-12 09:20] LABS: PLATELET COUNT 204 K/MM3 (134-434)
[2019-01-12] MEDS ORDERED: PT OWN MED DRAWER 7, Y5N ONE ×2 (10:31→21:36)
[2019-01-12] MEDS: ENOXAPARIN NA (PORCINE) 40 MG/0.4 ML DISP.SYRIN SQ SCH (10:40)
[2019-01-12] MEDS: valACYclovir HCL 500 MG TABLET (FP) PO SCH (10:40)
[2019-01-12] MEDS: AZITHROMYCIN IVPB 500 MG/250 ML BAG IVPB SCH (10:40)
[2019-01-12] MEDS: predniSONE 20 MG TABLET (UD) PO SCH (10:41)
[2019-01-12] MEDS: RITONAVIR 100 MG TABLET PO SCH (10:41)
[2019-01-12] MEDS: ROSUVASTATIN CA 5 MG TABLET (FP) PO SCH (10:41)
[2019-01-12] MEDS: RALTEGRAVIR POTASSIUM 400 MG TAB PO SCH ×2 (10:42→21:39)
[2019-01-12] MEDS: DARUNAVIR ETHANOLATE 800 MG TAB PO SCH (10:42)
[2019-01-12] MEDS ORDERED: DEXTROSE 5%-WATER - 50 ML IVPB ONE (12:09)
[2019-01-12] MEDS ORDERED: cefTRIAXone SODIUM 1 GM VIAL ONE (12:09)
[2019-01-12] MEDS ORDERED: INSULIN (NOVOLOG) ASPART 100 UNITS/ML 10ML VIAL ONE (12:16)
[2019-01-12] MEDS: CEFTRIAXONE 1 GM in DEXTROSE 5%-WATER - 50 ML IVPB SCH (13:48)
[2019-01-12] MEDS: clonazePAM 0.5 MG TABLET PO SCH (15:23)
--- NOTE | 2019-01-12 17:19 | PN ---
Progress Note (short form) - Note Progress Note: Patient is comfortable with no acute distress, positive for coughing. No fever or chills Vital Signs Temperature 98.9 F 01/12/19 14:00 Pulse Rate 88 01/12/19 14:00 Respiratory Rate 18 01/12/19 14:00 Blood Pressure 100/60 01/12/19 14:00 O2 Sat by Pulse Oximetry (%) 98 01/12/19 09:00 GENERAL: The patient is awake, alert, and fully oriented, in no acute distress. HEAD: Normal with no signs of trauma. NECK: supple. LUNGS: Inspiratory and expiratory wheezes noticed on exam, worse in the bases HEART: Regular rate and rhythm, S1, S2 without murmur, rub or gallop. ABDOMEN: Soft, NT,ND, no guarding, no rebound, no masses. EXTREMITIES: warm, well-perfused, no edema. NEUROLOGICAL: Normal speech, gait not observed. PSYCH: Normal mood, normal affect. SKIN: Warm, dry, no rashes or lesions noted CBCD WBC 8.9 K/mm3 (4.0-10.0) 01/12/19 06:30 RBC 3.42 M/mm3 (3.60-5.2) L 01/12/19 06:30 Hgb 11.1 GM/dL (10.7-15.3) 01/12/19 06:30 Hct 32.8 % (32.4-45.2) 01/12/19 06:30 MCV 95.8 fl (80-96) 01/12/19 06:30 MCHC 33.9 g/dl (32.0-36.0) 01/12/19 06:30 RDW 13.2 % (11.6-15.6) 01/12/19 06:30 Plt Count 204 K/MM3 (134-434) 01/12/19 06:30 MPV 7.9 fl (7.5-11.1) 01/12/19 06:30 CMP Sodium 140 mmol/L (136-145) 01/12/19 06:30 Potassium 3.8 mmol/L (3.5-5.1) 01/12/19 06:30 Chloride 104 mmol/L (98-107) 01/12/19 06:30 Carbon Dioxide 27 mmol/L (21-32) 01/12/19 06:30 Anion Gap 10 MMOL/L (8-16) 01/12/19 06:30 BUN 15.4 mg/dL (7-18) 01/12/19 06:30 Creatinine 0.7 mg/dL (0.55-1.3) 01/12/19 06:30 Random Glucose 89 mg/dL (74-106) 01/12/19 06:30 Calcium 9.1 mg/dL (8.5-10.1) 01/12/19 06:30 Total Bilirubin 0.2 mg/dL (0.2-1) 01/12/19 06:30 AST 16 U/L (15-37) 01/12/19 06:30 ALT 17 U/L (13-61) 01/12/19 06:30 Alkaline Phosphatase 46 U/L (45-117) 01/12/19 06:30 Total Protein 6.0 g/dl (6.4-8.2) L 01/12/19 06:30 Albumin 3.1 g/dl (3.4-5.0) L 01/12/19 06:30 Current Medications Generic Name Dose Route Start Last Admin Trade Name Freq PRN Reason Stop Dose Admin Acetaminophen 650 mg 01/12/19 03:15 01/12/19 03:26 Tylenol - PO 650 mg Q6H PRN Administration PAIN OR FEVER Albuterol Sulfate 1 amp 01/10/19 03:38 01/12/19 12:20 Ventolin 0.083% Nebulizer Soln - NEB 1 amp Q6H PRN Administration SHORT OF BREATH/WHEEZING Clonazepam 0.5 mg 01/12/19 15:30 01/12/19 15:23 Klonopin - PO 0.5 mg AM IFEOMA Administration Clonazepam 1 mg 01/12/19 15:08 Klonopin - PO HS PRN ANXIETY Darunavir 800 mg 01/10/19 10:00 01/12/19 10:42 Prezista - PO 800 mg DAILY IFEOMA Administration Enoxaparin Sodium 40 mg 01/10/19 10:00 01/12/19 10:40 Lovenox - SQ 40 mg DAILY IFEOMA Administration Azithromycin 500 mg in 250 mls @ 250 mls/hr 01/10/19 10:00 01/12/19 10:40 Zithromax 500mg Ivpb (Pre-Docked) IVPB 250 mls/hr DAILY IFEOMA Administration Ceftriaxone Sodium 1 gm/ 50 mls @ 100 mls/hr 01/10/19 10:00 01/12/19 13:48 Dextrose IVPB 100 mls/hr DAILY IFEOMA Administration Protocol Prednisone 40 mg 01/10/19 10:00 01/12/19 10:41 Deltasone - PO 40 mg DAILY IFEOMA Administration Raltegravir 400 mg 01/10/19 10:00 01/12/19 10:42 Isentress - PO 400 mg BID IFEOMA Administration Ritonavir 100 mg 01/10/19 10:00 01/12/19 10:41 Norvir - PO 100 mg DAILY IFEOMA Administration Rosuvastatin Calcium 5 mg 01/10/19 10:00 01/12/19 10:41 Crestor - PO 5 mg DAILY IFEOMA Administration Valacyclovir HCl 500 mg 01/10/19 10:00 01/12/19 10:40 Valtrex - PO 500 mg DAILY IFEOMA Administration Home Medications Medication Instructions Recorded Amox-Tr/K Cl [Augmentin - 875Mg 1 tab PO BID #20 tablet 01/08/19 Tablet] Guaifenesin Dm [Mucinex Dm -] 1 tab PO BID #60 tab.er.12h 01/08/19 Sulfamethoxazole/Trimethoprim 1 tab PO BID #14 tablet 01/08/19 [Bactrim Ds -] Aspirin [ASA -] 81 mg PO DAILY 01/10/19 Darunavir Ethanolate [Prezista] 800 mg PO DAILY 01/10/19 Raltegravir [Isentress -] 400 mg PO BID 01/10/19 Ritonavir [Norvir] 100 mg PO DAILY 01/10/19 Rosuvastatin [Crestor -] 5 mg PO DAILY 01/10/19 Valacyclovir HCl [Valtrex] 500 mg PO DAILY 01/10/19 clonazePAM [Klonopin -] 0.5 mg PO TID 01/10/19 ASSESSMENT AND PLAN: Patient is a 58yo female with well controlled HIV, history of positive PPD ( porphylaxed with INH many years ago), presented with 5 day history of fever and cough. #Acute RUL infiltrate with positive PPD ( prophylaxed with INH many years ago) by history and HIV . ID on the case. # CAP: On rocephin/zithromax; urinary antigen legionella/pneumococcal negative # AFB: pending # HIV: continue ART DVT Px: Lovenox Visit type - Emergency Visit Emergency Visit: Yes ED Registration Date: 01/10/19 Care time: The patient presented to the Emergency Department on the above date and was hospitalized for further evaluation of their emergent condition. - New Patient This patient is new to me today: No - Critical Care Critical Care patient: No - Discharge Referral Referred to [facility] Med P.C.: No
[2019-01-12] MEDS: clonazePAM 0.5 MG TABLET PO PRN (21:39)
[2019-01-13] MEDS ORDERED: DEXTROSE 5%-WATER - 50 ML IVPB ONE (09:40)
[2019-01-13] MEDS ORDERED: cefTRIAXone SODIUM 1 GM VIAL ONE (09:40)
[2019-01-13] MEDS ORDERED: PT OWN MED DRAWER 7, Y5N ONE (09:40)
[2019-01-13] MEDS: ENOXAPARIN NA (PORCINE) 40 MG/0.4 ML DISP.SYRIN SQ SCH (09:45)
[2019-01-13] MEDS: clonazePAM 0.5 MG TABLET PO SCH (09:45)
[2019-01-13] MEDS: ROSUVASTATIN CA 5 MG TABLET (FP) PO SCH (09:45)
[2019-01-13] MEDS: predniSONE 20 MG TABLET (UD) PO SCH (09:45)
[2019-01-13] MEDS: AZITHROMYCIN IVPB 500 MG/250 ML BAG IVPB SCH (09:45)
[2019-01-13] MEDS: DARUNAVIR ETHANOLATE 800 MG TAB PO SCH (09:46)
[2019-01-13] MEDS: valACYclovir HCL 500 MG TABLET (FP) PO SCH (09:46)
[2019-01-13] MEDS: RALTEGRAVIR POTASSIUM 400 MG TAB PO SCH ×2 (09:46→21:42)
[2019-01-13] MEDS: RITONAVIR 100 MG TABLET PO SCH (09:46)
[2019-01-13] MEDS: CEFTRIAXONE 1 GM in DEXTROSE 5%-WATER - 50 ML IVPB SCH (11:07)
--- NOTE | 2019-01-13 11:51 | PN ---
Progress Note, Physician History of Present Illness: AWAKE, ALERT SEATED IN BED C/O COUGH PRODUCTIVE OF WHITISH SPUTUM NO HEMOPTYSIS NO C/O DYSPNEA/ CHEST PAIN NO FEVER/ CHIILLS - Current Medication List Current Medications: Active Medications Acetaminophen (Tylenol -) 650 mg PO Q6H PRN PRN Reason: PAIN OR FEVER Last Admin: 01/12/19 21:39 Dose: 650 mg Albuterol Sulfate (Ventolin 0.083% Nebulizer Soln -) 1 amp NEB Q6H PRN PRN Reason: SHORT OF BREATH/WHEEZING Last Admin: 01/12/19 23:31 Dose: 1 amp Clonazepam (Klonopin -) 0.5 mg PO AM IFEOMA Last Admin: 01/13/19 09:45 Dose: 0.5 mg Clonazepam (Klonopin -) 1 mg PO HS PRN PRN Reason: ANXIETY Last Admin: 01/12/19 21:39 Dose: 1 mg Darunavir (Prezista -) 800 mg PO DAILY [facility] Last Admin: 01/13/19 09:46 Dose: 800 mg Enoxaparin Sodium (Lovenox -) 40 mg SQ DAILY [facility] Last Admin: 01/13/19 09:45 Dose: 40 mg Azithromycin (Zithromax 500mg Ivpb (Pre-Docked)) 500 mg in 250 mls @ 250 mls/ hr IVPB DAILY [facility] Last Admin: 01/13/19 09:45 Dose: 250 mls/hr Ceftriaxone Sodium 1 gm/ (Dextrose) 50 mls @ 100 mls/hr IVPB DAILY [facility]; Protocol Last Admin: 01/13/19 11:07 Dose: 100 mls/hr Prednisone (Deltasone -) 40 mg PO DAILY [facility] Last Admin: 01/13/19 09:45 Dose: 40 mg Raltegravir (Isentress -) 400 mg PO BID [facility] Last Admin: 01/13/19 09:46 Dose: 400 mg Ritonavir (Norvir -) 100 mg PO DAILY [facility] Last Admin: 01/13/19 09:46 Dose: 100 mg Rosuvastatin Calcium (Crestor -) 5 mg PO DAILY [facility] Last Admin: 01/13/19 09:45 Dose: 5 mg Valacyclovir HCl (Valtrex -) 500 mg PO DAILY [facility] Last Admin: 01/13/19 09:46 Dose: 500 mg - Objective Vital Signs: Vital Signs Temperature 97.9 F 01/13/19 09:44 Pulse Rate 82 01/13/19 09:44 Respiratory Rate 18 01/13/19 09:44 Blood Pressure 143/78 01/13/19 09:44 O2 Sat by Pulse Oximetry (%) 98 01/13/19 09:00 Constitutional: Yes: No Distress Eyes: Yes: Conjunctiva Clear Cardiovascular: Yes: Regular Rate and Rhythm, S1, S2 Respiratory: Yes: CTA Bilaterally Gastrointestinal: Yes: Normal Bowel Sounds, Soft. No: Tenderness Labs: CBC, BMP 01/12/19 06:30 01/12/19 06:30 Assessment/Plan RUL PNEUMONIA HX +PPD HIV AWAIT SPUTUM AFB CONTINUE ZITHROMAX/ CEFTRIAXONE
--- NOTE | 2019-01-13 16:43 | PN ---
Physical Exam: SUBJECTIVE: Patient seen and examined at bedside. Pt wants to go home as soon as possible. Pt in no acute distress and no acute events overnight. OBJECTIVE: Vital Signs Period Temp Pulse Resp BP Sys/Sarmiento Pulse Ox Last 24 Hr 97.9 F-99.6 F 74-90 18-20 110-143/64-78 98-98 GENERAL: The patient is awake, alert, and fully oriented, in no acute distress. HEAD: Normal with no signs of trauma. EYES: extraocular movements grossly intact, sclera anicteric, conjunctiva clear. No ptosis. NECK: gross full range of motion, supple. LUNGS: Breath sounds equal, clear to auscultation bilaterally, no wheezes, no crackles, no accessory muscle use. HEART: Regular rate and rhythm, S1, S2 without murmur, rub or gallop. ABDOMEN: Soft, nontender, nondistended, normoactive bowel sounds, no guarding, no rebound, no masses. EXTREMITIES: 2+ pulses, warm, well-perfused, no edema. NEUROLOGICAL: Cranial nerves II through XII grossly intact. Normal speech, gait not observed. PSYCH: Normal mood, normal affect. SKIN: Warm, dry, well perfused. Active Medications Generic Name Dose Route Start Last Admin Trade Name Freq PRN Reason Stop Dose Admin Acetaminophen 650 mg 01/12/19 03:15 01/12/19 21:39 Tylenol - PO 650 mg Q6H PRN Administration PAIN OR FEVER Albuterol Sulfate 1 amp 01/10/19 03:38 01/12/19 23:31 Ventolin 0.083% Nebulizer Soln - NEB 1 amp Q6H PRN Administration SHORT OF BREATH/WHEEZING Clonazepam 0.5 mg 01/12/19 15:30 01/13/19 09:45 Klonopin - PO 0.5 mg AM IFEOMA Administration Clonazepam 1 mg 01/12/19 15:08 01/12/19 21:39 Klonopin - PO 1 mg HS PRN Administration ANXIETY Darunavir 800 mg 01/10/19 10:00 01/13/19 09:46 Prezista - PO 800 mg DAILY IFEOMA Administration Enoxaparin Sodium 40 mg 01/10/19 10:00 01/13/19 09:45 Lovenox - SQ 40 mg DAILY IFEOMA Administration Azithromycin 500 mg in 250 mls @ 250 mls/hr 01/10/19 10:00 01/13/19 09:45 Zithromax 500mg Ivpb (Pre-Docked) IVPB 250 mls/hr DAILY IFEOMA Administration Ceftriaxone Sodium 1 gm/ 50 mls @ 100 mls/hr 01/10/19 10:00 01/13/19 11:07 Dextrose IVPB 100 mls/hr DAILY IFEOMA Administration Protocol Prednisone 40 mg 01/10/19 10:00 01/13/19 09:45 Deltasone - PO 40 mg DAILY IFEOMA Administration Raltegravir 400 mg 01/10/19 10:00 01/13/19 09:46 Isentress - PO 400 mg BID IFEOMA Administration Ritonavir 100 mg 01/10/19 10:00 01/13/19 09:46 Norvir - PO 100 mg DAILY IFEOMA Administration Rosuvastatin Calcium 5 mg 01/10/19 10:00 01/13/19 09:45 Crestor - PO 5 mg DAILY IFEOMA Administration Valacyclovir HCl 500 mg 01/10/19 10:00 01/13/19 09:46 Valtrex - PO 500 mg DAILY IFEOMA Administration CBC, BMP 01/12/19 06:30 01/12/19 06:30 ASSESSMENT/PLAN: 58 y/o F with a PMH of HLD, HIV(contracted from in ), claims to be compliant with HAART medications(Ritonavir, Raltegravir, Darunavir), h/o TB (dx , received full treatment), h/o shingles(2000), genital/oral herpes, h/o prior episode of PNA; presented to the ED on 01/08/19 initially c/o cough and fever for 3 days with associated headaches. Pt was sent home on augmentin and bactrim but returned a day later c/o of yellow sputum productive cough for 4 days with associated headache, fever, chills. #Pneumonia - pt is being treated with ceftriaxone and azithromycin (day 5). - UA legionella negative. Pneumococcal negative. Gram stain positive for Staph. - AFB sputum pending, quantiferon gold negative for TB. - B.C.'s negative -CXR: Rt upper lobe infiltrate -CTA- B/l noncavitary pulmonary infiltrates and prominent atherosclerotic aortic mural irregularity. - afebrile normal wbc but will continue to monitor - continue airborne precautions #HIV - continue HAART meds #HSV oral and genital - continue with valtrex #HLD - Continue w crestor 5mg PO daily as prescribed #smoking - would recommend smoking cessation. #FEN -fluids not indicated at this time. - will continue to monitor for any electrolyte abnormalities. - regular diet Prophylaxis: DVT- Lovenox 40mg SQ GI: not indicated at this time. Visit type - Emergency Visit Emergency Visit: No - New Patient This patient is new to me today: No - Critical Care Critical Care patient: No - Discharge Referral Referred to [facility] No
--- NOTE | 2019-01-13 19:06 | PN ---
Teaching Attending Note Name of Resident: Bro Rhodes ATTENDING PHYSICIAN STATEMENT I saw and evaluated the patient. I reviewed the resident's note and discussed the case with the resident. I agree with the resident's findings and plan as documented. SUBJECTIVE: Patient is comfortable with no acute distress, except coughing, no fever or chills. OBJECTIVE: Vital Signs Temperature 98.4 F 01/13/19 17:40 Pulse Rate 76 01/13/19 17:40 Respiratory Rate 18 01/13/19 17:40 Blood Pressure 111/65 01/13/19 17:40 O2 Sat by Pulse Oximetry (%) 98 01/13/19 09:00 GENERAL: The patient is awake, alert, and fully oriented, in no acute distress. HEAD: Normal with no signs of trauma. NECK: supple. LUNGS: expiratory wheezes , otherwise GAE BL , deminished air entry bl. HEART: Regular rate and rhythm, S1, S2 without murmur, rub or gallop. ABDOMEN: Soft, NT,ND, no guarding, no rebound, no masses. EXTREMITIES: warm, well-perfused, no edema. NEUROLOGICAL: Normal speech, gait not observed. PSYCH: Normal mood, normal affect. SKIN: Warm, dry, no rashes or lesions noted CBCD WBC 8.9 K/mm3 (4.0-10.0) 01/12/19 06:30 RBC 3.42 M/mm3 (3.60-5.2) L 01/12/19 06:30 Hgb 11.1 GM/dL (10.7-15.3) 01/12/19 06:30 Hct 32.8 % (32.4-45.2) 01/12/19 06:30 MCV 95.8 fl (80-96) 01/12/19 06:30 MCHC 33.9 g/dl (32.0-36.0) 01/12/19 06:30 RDW 13.2 % (11.6-15.6) 01/12/19 06:30 Plt Count 204 K/MM3 (134-434) 01/12/19 06:30 MPV 7.9 fl (7.5-11.1) 01/12/19 06:30 CMP Sodium 140 mmol/L (136-145) 01/12/19 06:30 Potassium 3.8 mmol/L (3.5-5.1) 01/12/19 06:30 Chloride 104 mmol/L (98-107) 01/12/19 06:30 Carbon Dioxide 27 mmol/L (21-32) 01/12/19 06:30 Anion Gap 10 MMOL/L (8-16) 01/12/19 06:30 BUN 15.4 mg/dL (7-18) 01/12/19 06:30 Creatinine 0.7 mg/dL (0.55-1.3) 01/12/19 06:30 Random Glucose 89 mg/dL (74-106) 01/12/19 06:30 Calcium 9.1 mg/dL (8.5-10.1) 01/12/19 06:30 Total Bilirubin 0.2 mg/dL (0.2-1) 01/12/19 06:30 AST 16 U/L (15-37) 01/12/19 06:30 ALT 17 U/L (13-61) 01/12/19 06:30 Alkaline Phosphatase 46 U/L (45-117) 01/12/19 06:30 Total Protein 6.0 g/dl (6.4-8.2) L 01/12/19 06:30 Albumin 3.1 g/dl (3.4-5.0) L 01/12/19 06:30 Current Medications Generic Name Dose Route Start Last Admin Trade Name Freq PRN Reason Stop Dose Admin Acetaminophen 650 mg 01/12/19 03:15 01/12/19 21:39 Tylenol - PO 650 mg Q6H PRN Administration PAIN OR FEVER Albuterol Sulfate 1 amp 01/10/19 03:38 01/12/19 23:31 Ventolin 0.083% Nebulizer Soln - NEB 1 amp Q6H PRN Administration SHORT OF BREATH/WHEEZING Clonazepam 0.5 mg 01/12/19 15:30 01/13/19 09:45 Klonopin - PO 0.5 mg AM IFEOMA Administration Clonazepam 1 mg 01/12/19 15:08 01/12/19 21:39 Klonopin - PO 1 mg HS PRN Administration ANXIETY Darunavir 800 mg 01/10/19 10:00 01/13/19 09:46 Prezista - PO 800 mg DAILY IFEOMA Administration Enoxaparin Sodium 40 mg 01/10/19 10:00 01/13/19 09:45 Lovenox - SQ 40 mg DAILY IFEOMA Administration Azithromycin 500 mg in 250 mls @ 250 mls/hr 01/10/19 10:00 01/13/19 09:45 Zithromax 500mg Ivpb (Pre-Docked) IVPB 250 mls/hr DAILY IFEOMA Administration Ceftriaxone Sodium 1 gm/ 50 mls @ 100 mls/hr 01/10/19 10:00 01/13/19 11:07 Dextrose IVPB 100 mls/hr DAILY IFEOMA Administration Protocol Prednisone 40 mg 01/10/19 10:00 01/13/19 09:45 Deltasone - PO 40 mg DAILY IFEOMA Administration Raltegravir 400 mg 01/10/19 10:00 01/13/19 09:46 Isentress - PO 400 mg BID IFEOMA Administration Ritonavir 100 mg 01/10/19 10:00 01/13/19 09:46 Norvir - PO 100 mg DAILY IFEOMA Administration Rosuvastatin Calcium 5 mg 01/10/19 10:00 01/13/19 09:45 Crestor - PO 5 mg DAILY IFEOMA Administration Valacyclovir HCl 500 mg 01/10/19 10:00 01/13/19 09:46 Valtrex - PO 500 mg DAILY IFEOMA Administration Home Medications Medication Instructions Recorded Amox-Tr/K Cl [Augmentin - 875Mg 1 tab PO BID #20 tablet 01/08/19 Tablet] Guaifenesin Dm [Mucinex Dm -] 1 tab PO BID #60 tab.er.12h 01/08/19 Sulfamethoxazole/Trimethoprim 1 tab PO BID #14 tablet 01/08/19 [Bactrim Ds -] Aspirin [ASA -] 81 mg PO DAILY 01/10/19 Darunavir Ethanolate [Prezista] 800 mg PO DAILY 01/10/19 Raltegravir [Isentress -] 400 mg PO BID 01/10/19 Ritonavir [Norvir] 100 mg PO DAILY 01/10/19 Rosuvastatin [Crestor -] 5 mg PO DAILY 01/10/19 Valacyclovir HCl [Valtrex] 500 mg PO DAILY 01/10/19 clonazePAM [Klonopin -] 0.5 mg PO TID 01/10/19 Microbiology 01/10/19 14:20 Sputum - Expectorated AFB Smear Concentration - Final 01/10/19 14:20 Sputum - Expectorated Mycobacterial Culture - Preliminary 01/12/19 06:36 Sputum - Expectorated AFB Smear Concentration - Preliminary 01/12/19 06:36 Sputum - Expectorated Mycobacterial Culture - Preliminary 01/11/19 09:30 Sputum - Expectorated AFB Smear Concentration - Preliminary 01/11/19 09:30 Sputum - Expectorated Mycobacterial Culture - Preliminary 01/09/19 22:50 Blood - Peripheral Venous Blood Culture - Preliminary NO GROWTH OBTAINED AFTER 96 HOURS, INCUBATION TO CONTINUE FOR 1 DAYS. 01/09/19 22:50 Blood - Peripheral Venous Blood Culture - Preliminary NO GROWTH OBTAINED AFTER 96 HOURS, INCUBATION TO CONTINUE FOR 1 DAYS. 01/10/19 08:00 Sputum - Expectorated Gram Stain - Final 01/10/19 08:00 Sputum - Expectorated Sputum Culture - Final NORMAL RESPIRATORY ALIA 01/10/19 10:00 Urine For Antigen Detection Legionella Antigen - Final 01/10/19 10:00 Urine For Antigen Detection Streptococcus pneumoniae Antigen (M - Final ASSESSMENT AND PLAN: Patient is a 58yo female with well controlled HIV, history of positive PPD ( porphylaxed with INH many years ago), presented with 5 day history of fever and cough. #Acute RUL infiltrate with positive PPD ( prophylaxed with INH many years ago) by history with a hx of HIV . ID on the case. # CAP: On rocephin/zithromax; urinary antigen legionella/pneumococcal negative # AFB: final culture of AFB is pending # HIV: continue ART DVT Px: Lovenox
[2019-01-13] MEDS: clonazePAM 0.5 MG TABLET PO PRN (21:38)
[2019-01-13] MEDS: ALBUTEROL SO4 0.083% IH SOL 2.5 MG/3 ML VIAL.NEB. NEB PRN (23:34)
[2019-01-14] MEDS: clonazePAM 0.5 MG TABLET PO SCH (06:10)
[2019-01-14 07:14] LABS: ALBUMIN 3.1 g/dl (3.4-5.0); BILIRUBIN,TOTAL 0.2 mg/dL (0.2-1); BLOOD UREA NITROGEN 14.9 mg/dL (7-18); CALCIUM 8.9 mg/dL (8.5-10.1); CREATININE 0.8 mg/dL (0.55-1.3); POTASSIUM 4.4 mmol/L (3.5-5.1); TOT PROT 6.1 g/dl (6.4-8.2)
[2019-01-14 07:21] LABS: BASO % 0.4 % (0-2.0); EOS % 0.3 % (0-4.5); HEMATOCRIT 35.4 % (32.4-45.2); HEMOGLOBIN 11.8 GM/dL (10.7-15.3); MCH 32.4 pg (25.7-33.7); MCHC 33.3 g/dl (32.0-36.0); MEAN CELL VOLUME 97.3 fl (80-96); MEAN PLT VOLUME 7.5 fl (7.5-11.1); MONO % 8.1 % (3.8-10.2); NEUT % 53.2 % (42.8-82.8); PLATELET COUNT 262 K/MM3 (134-434); RBC 3.64 M/mm3 (3.60-5.2); RDW 13.2 % (11.6-15.6); WHITE BLOOD COUNT 12.1 K/mm3 (4.0-10.0)
[2019-01-14] MEDS ORDERED: cefTRIAXone SODIUM 1 GM VIAL ONE (10:06)
[2019-01-14] MEDS ORDERED: DEXTROSE 5%-WATER - 50 ML IVPB ONE (10:06)
[2019-01-14] MEDS: CEFTRIAXONE 1 GM in DEXTROSE 5%-WATER - 50 ML IVPB SCH (10:11)
[2019-01-14] MEDS: ROSUVASTATIN CA 5 MG TABLET (FP) PO SCH (10:14)
[2019-01-14] MEDS: predniSONE 20 MG TABLET (UD) PO SCH (10:14)
[2019-01-14] MEDS: ENOXAPARIN NA (PORCINE) 40 MG/0.4 ML DISP.SYRIN SQ SCH (10:14)
[2019-01-14] MEDS: DARUNAVIR ETHANOLATE 800 MG TAB PO SCH (10:17)
[2019-01-14] MEDS: RITONAVIR 100 MG TABLET PO SCH (10:17)
[2019-01-14] MEDS: RALTEGRAVIR POTASSIUM 400 MG TAB PO SCH (10:17)
[2019-01-14] MEDS: valACYclovir HCL 500 MG TABLET (FP) PO SCH (10:18)
[2019-01-14] MEDS: AZITHROMYCIN IVPB 500 MG/250 ML BAG IVPB SCH (10:18)
[2019-01-14 11:59] LABS: ANISOCYTOSIS 2+; MACROCYTOSIS 0; OVALOCYTE 1+; PLATELET ESTIMATE NORMAL; TEAR DROP CELLS 1+
[2019-01-14] MEDS ORDERED: PT OWN MED DRAWER 7, Y5N ONE (12:07)
--- NOTE | 2019-01-14 13:03 | PN ---
Progress Note (short form) - Note Progress Note: still some cough but other yoo improved Vital Signs Period Temp Pulse Resp BP Sys/Sarmiento Pulse Ox Last 24 Hr 98.2 F-98.8 F 71-79 16-18 111-151/65-87 98 cor-rrr lungs clear abd soft,nt ext no edema CBC, BMP 01/14/19 05:53 01/14/19 05:53 Microbiology 01/10/19 14:20 Sputum - Expectorated AFB Smear Concentration - Final 01/10/19 14:20 Sputum - Expectorated Mycobacterial Culture - Preliminary 01/12/19 06:36 Sputum - Expectorated AFB Smear Concentration - Preliminary 01/12/19 06:36 Sputum - Expectorated Mycobacterial Culture - Preliminary 01/11/19 09:30 Sputum - Expectorated AFB Smear Concentration - Preliminary 01/11/19 09:30 Sputum - Expectorated Mycobacterial Culture - Preliminary 01/09/19 22:50 Blood - Peripheral Venous Blood Culture - Preliminary NO GROWTH OBTAINED AFTER 96 HOURS, INCUBATION TO CONTINUE FOR 1 DAYS. 01/09/19 22:50 Blood - Peripheral Venous Blood Culture - Preliminary NO GROWTH OBTAINED AFTER 96 HOURS, INCUBATION TO CONTINUE FOR 1 DAYS. 01/10/19 08:00 Sputum - Expectorated Gram Stain - Final 01/10/19 08:00 Sputum - Expectorated Sputum Culture - Final NORMAL RESPIRATORY ALIA 01/10/19 10:00 Urine For Antigen Detection Legionella Antigen - Final 01/10/19 10:00 Urine For Antigen Detection Streptococcus pneumoniae Antigen (M - Final cd4 685 a/p pneumonia history of Positive PPD HIV day #5 rocephin/zithromax f/u sputum afb this afternoon (call [facility] [place] [facility] lab)- if negative smears can d/c home off antibioitcs she can f/u at 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
[2019-01-14 15:25] VITALS: BP 128/77; PULSE 74; TEMP 98.3
--- NOTE | 2019-01-14 15:57 | PN ---
Teaching Attending Note Name of Resident: Bro Rhodes ATTENDING PHYSICIAN STATEMENT I saw and evaluated the patient. I reviewed the resident's note and discussed the case with the resident. I agree with the resident's findings and plan as documented. SUBJECTIVE: Patient is feeling better with no acute distress, continues to cough but less than before. OBJECTIVE: Vital Signs Temperature 98.3 F 01/14/19 15:21 Pulse Rate 74 01/14/19 15:21 Respiratory Rate 18 01/14/19 15:21 Blood Pressure 128/77 01/14/19 15:21 O2 Sat by Pulse Oximetry (%) 98 01/14/19 09:00 GENERAL: The patient is awake, alert, and fully oriented, in no acute distress. HEAD: Normal with no signs of trauma. NECK: supple. LUNGS: CTA BL , no wheezing or rhonchi HEART: RRR, S1, S2 without murmur, rub or gallop. ABDOMEN: Soft, NT,ND, no guarding, no rebound, no masses. EXTREMITIES: warm, well-perfused, no edema. NEUROLOGICAL: Normal speech, gait is stable . PSYCH: Normal mood, normal affect. SKIN: Warm, dry, no rashes or lesions noted WBC 12.1 K/mm3 (4.0-10.0) H 01/14/19 05:53 RBC 3.64 M/mm3 (3.60-5.2) 01/14/19 05:53 Hgb 11.8 GM/dL (10.7-15.3) 01/14/19 05:53 Hct 35.4 % (32.4-45.2) 01/14/19 05:53 MCV 97.3 fl (80-96) H 01/14/19 05:53 MCHC 33.3 g/dl (32.0-36.0) 01/14/19 05:53 RDW 13.2 % (11.6-15.6) 01/14/19 05:53 Plt Count 262 K/MM3 (134-434) D 01/14/19 05:53 MPV 7.5 fl (7.5-11.1) 01/14/19 05:53 CMP Sodium 142 mmol/L (136-145) 01/14/19 05:53 Potassium 4.4 mmol/L (3.5-5.1) 01/14/19 05:53 Chloride 106 mmol/L (98-107) 01/14/19 05:53 Carbon Dioxide 29 mmol/L (21-32) 01/14/19 05:53 Anion Gap 7 MMOL/L (8-16) L 01/14/19 05:53 BUN 14.9 mg/dL (7-18) 01/14/19 05:53 Creatinine 0.8 mg/dL (0.55-1.3) 01/14/19 05:53 Random Glucose 82 mg/dL (74-106) 01/14/19 05:53 Calcium 8.9 mg/dL (8.5-10.1) 01/14/19 05:53 Total Bilirubin 0.2 mg/dL (0.2-1) 01/14/19 05:53 AST 11 U/L (15-37) L 01/14/19 05:53 ALT 20 U/L (13-61) 01/14/19 05:53 Alkaline Phosphatase 47 U/L (45-117) 01/14/19 05:53 Total Protein 6.1 g/dl (6.4-8.2) L 01/14/19 05:53 Albumin 3.1 g/dl (3.4-5.0) L 01/14/19 05:53 Current Medications Generic Name Dose Route Start Last Admin Trade Name Freq PRN Reason Stop Dose Admin Acetaminophen 650 mg 01/12/19 03:15 01/12/19 21:39 Tylenol - PO 650 mg Q6H PRN Administration PAIN OR FEVER Albuterol Sulfate 1 amp 01/10/19 03:38 01/13/19 23:34 Ventolin 0.083% Nebulizer Soln - NEB 1 amp Q6H PRN Administration SHORT OF BREATH/WHEEZING Clonazepam 0.5 mg 01/12/19 15:30 01/14/19 06:10 Klonopin - PO 0.5 mg AM IFEOMA Administration Clonazepam 1 mg 01/12/19 15:08 01/13/19 21:38 Klonopin - PO 1 mg HS PRN Administration ANXIETY Darunavir 800 mg 01/10/19 10:00 01/14/19 10:17 Prezista - PO 800 mg DAILY IFEOMA Administration Enoxaparin Sodium 40 mg 01/10/19 10:00 01/14/19 10:14 Lovenox - SQ 40 mg DAILY IFEOMA Administration Azithromycin 500 mg in 250 mls @ 250 mls/hr 01/10/19 10:00 01/14/19 10:18 Zithromax 500mg Ivpb (Pre-Docked) IVPB 250 mls/hr DAILY IFEOMA Administration Ceftriaxone Sodium 1 gm/ 50 mls @ 100 mls/hr 01/10/19 10:00 01/14/19 10:11 Dextrose IVPB 100 mls/hr DAILY IFEOMA Administration Protocol Prednisone 40 mg 01/10/19 10:00 01/14/19 10:14 Deltasone - PO 40 mg DAILY IFEOMA Administration Raltegravir 400 mg 01/10/19 10:00 01/14/19 10:17 Isentress - PO 400 mg BID IFEOMA Administration Ritonavir 100 mg 01/10/19 10:00 01/14/19 10:17 Norvir - PO 100 mg DAILY IFEOMA Administration Rosuvastatin Calcium 5 mg 01/10/19 10:00 01/14/19 10:14 Crestor - PO 5 mg DAILY IFEOMA Administration Valacyclovir HCl 500 mg 01/10/19 10:00 01/14/19 10:18 Valtrex - PO 500 mg DAILY IFEOMA Administration Home Medications Medication Instructions Recorded Aspirin [ASA -] 81 mg PO DAILY 01/10/19 Darunavir Ethanolate [Prezista] 800 mg PO DAILY 01/10/19 Raltegravir [Isentress] 400 mg PO BID 01/10/19 Ritonavir [Norvir] 100 mg PO DAILY 01/10/19 Rosuvastatin [Crestor -] 5 mg PO DAILY 01/10/19 Valacyclovir HCl [Valtrex] 500 mg PO DAILY 01/10/19 clonazePAM [Klonopin -] 0.5 mg PO TID 01/10/19 Prednisone See Taper PO DAILY 6 Days #12 01/14/19 tablet Micriobiology: 01/10/19 14:20 Sputum - Expectorated AFB Smear Concentration - Final 01/10/19 14:20 Sputum - Expectorated Mycobacterial Culture - Preliminary 01/12/19 06:36 Sputum - Expectorated AFB Smear Concentration - Preliminary 01/12/19 06:36 Sputum - Expectorated Mycobacterial Culture - Preliminary 01/11/19 09:30 Sputum - Expectorated AFB Smear Concentration - Preliminary 01/11/19 09:30 Sputum - Expectorated Mycobacterial Culture - Preliminary 01/09/19 22:50 Blood - Peripheral Venous Blood Culture - Preliminary NO GROWTH OBTAINED AFTER 96 HOURS, INCUBATION TO CONTINUE FOR 1 DAYS. 01/09/19 22:50 Blood - Peripheral Venous Blood Culture - Preliminary NO GROWTH OBTAINED AFTER 96 HOURS, INCUBATION TO CONTINUE FOR 1 DAYS. 01/10/19 08:00 Sputum - Expectorated Gram Stain - Final 01/10/19 08:00 Sputum - Expectorated Sputum Culture - Final NORMAL RESPIRATORY ALIA 01/10/19 10:00 Urine For Antigen Detection Legionella Antigen - Final 01/10/19 10:00 Urine For Antigen Detection Streptococcus pneumoniae Antigen (M - Final ASSESSMENT AND PLAN: Patient is a 58yo female with well controlled HIV, history of positive PPD ( porphylaxed with INH many years ago), presented with 5 day history of fever and cough. #Acute RUL infiltrate in patient with positive PPD by history and HIV, AFB ( 3sets were send, they were negative, got verbal report from the [facility] as per Dr. Bro Rhodes, 1st report is negative as per our lab. as per ID , no further antibiotic is needed. can be discharged home without any antibiotics. # CAP: s/p rocephin/zithromax (last dose today) urinary antigen legionella/ pneumococcal negative # AFB ; 3 sets are negative. # HIV: continue ART , follow with Discharge patient home.
--- NOTE | 2019-01-14 17:09 | DS ---
Physical Exam: SUBJECTIVE: Patient seen and examined at the bedside and in no acute distress. No acute events overnight. OBJECTIVE: Vital Signs Period Temp Pulse Resp BP Sys/Sarmiento Pulse Ox Last 24 Hr 98.2 F-98.8 F 71-79 16-18 111-151/65-87 98-98 PHYSICAL EXAM GENERAL: The patient is awake, alert, and fully oriented, in no acute distress. HEAD: Normal with no signs of trauma. EYES: extraocular movements intact, sclera anicteric, conjunctiva clear. NECK: supple. LUNGS: Breath sounds equal, clear to auscultation bilaterally, no wheezes, no crackles, no accessory muscle use. HEART: Regular rate and rhythm, S1, S2 without murmur, rub or gallop. ABDOMEN: Soft, nontender, nondistended, normoactive bowel sounds, no guarding. EXTREMITIES: 2+ pulses, warm, well-perfused, no edema. NEUROLOGICAL: Cranial nerves II through XII grossly intact. Normal speech, gait not observed. PSYCH: Normal mood, normal affect. SKIN: Warm, dry, no rashes or lesions noted. LABS Laboratory Results - last 24 hr 01/14/19 01/14/19 05:53 05:53 WBC 12.1 H RBC 3.64 Hgb 11.8 Hct 35.4 MCV 97.3 H MCH 32.4 MCHC 33.3 RDW 13.2 Plt Count 262 D MPV 7.5 Absolute Neuts (auto) 6.4 Neutrophils % 53.2 Neutrophils % (Manual) 50.5 Band Neutrophils % 2.9 Lymphocytes % 38.0 Lymphocytes % (Manual) 32.0 Monocytes % 8.1 Monocytes % (Manual) 5 Eosinophils % 0.3 Eosinophils % (Manual) 0.0 Basophils % 0.4 Basophils % (Manual) 0.0 Myelocytes % (Man) 0 Promyelocytes % (Man) 0 Blast Cells % (Manual) 0 Nucleated RBC % 0 Metamyelocytes 0 Hypochromia 0 Platelet Estimate Normal Platelet Comment Present Polychromasia 1+ Poikilocytosis 1+ Anisocytosis 2+ Microcytosis 1+ Macrocytosis 0 Spherocytes 1+ Tear Drop Cells 1+ Ovalocytes 1+ Schistocytes 1+ Sodium 142 Potassium 4.4 Chloride 106 Carbon Dioxide 29 Anion Gap 7 L BUN 14.9 Creatinine 0.8 Est GFR (CKD-EPI)AfAm 93.53 Est GFR (CKD-EPI)NonAf 80.70 Random Glucose 82 Calcium 8.9 Total Bilirubin 0.2 AST 11 L ALT 20 Alkaline Phosphatase 47 Total Protein 6.1 L Albumin 3.1 L HOSPITAL COURSE: Date of Admission:01/10/19 This is a 58 Y/O F with a PMH of HIV, TB, HLD, Herpes, and prior episode of PNA who was admitted for RUL community aquired pneumonia. Images: CXR- RUL infiltrate CTA- b/l noncavitary pulmonary infiiltrates and prominent atherosclerotic aortic mural irregularity. AFB sputum 3 samples were negative QFN gold negative Patient was placed on ceftriaxone and azithromycin and completed her regimen for her PNA and it has since resolved. - Continue her home medications as prescribed. - Told patient to see her PCP in 1 week. 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 Date of Discharge: 01/14/19 Minutes to complete discharge: 35 Discharge Summary Reason For Visit: COUGH,HIV INFECTION,PNEUMONIA Condition: Good - Instructions Diet, Activity, Other Instructions: You were admitted for pneumonia. While you were here we treated your pneumonia with antibiotics and we gave inhaled nebulizer treatments to help with your wheezing and congestion. We also ordered some tests for Tuberculosis given your history of positive PPD. You do not have any active Tuberculosis at this time. Continue to get regularly checked by your PCP. Prednisone 30 mg (3pills) by mouth for two days 3 X 10=30mg Prednisone 20 mg (2 pills) by mouth for two days 2 X 10 = 20 mg Prednisone 10 mg (1 pill) by mouth for two days 1 X 10= 10 mg - Continue all your home medications as prescribed. - Return to see your primary care physician in 1 week as well as your piano maker in 1 week. and [facility]/ within a week period. - If you feel worsening of these symptoms: productive cough, night sweats, fevers, chills, shortness of breath, chest pain. Referrals: Fabiano Hernandez MD [Staff Physician] - 1 Week Alam Pineda MD [Staff Physician] - 1 Week Disposition: HOME - Home Medications Comprehensive Discharge Medication List: Ambulatory Orders Aspirin [ASA -] 81 mg PO DAILY 01/10/19 Darunavir Ethanolate [Prezista] 800 mg PO DAILY 01/10/19 Raltegravir [Isentress] 400 mg PO BID 01/10/19 Ritonavir [Norvir] 100 mg PO DAILY 01/10/19 Rosuvastatin [Crestor -] 5 mg PO DAILY 01/10/19 Valacyclovir HCl [Valtrex] 500 mg PO DAILY 01/10/19 clonazePAM [Klonopin -] 0.5 mg PO TID 01/10/19 Prednisone See Taper PO DAILY 6 Days #12 tablet 01/14/19 This patient is new to me today: No Emergency Visit: No Critical Care patient: No - Discharge Referral Referred to [facility] No ATTENDING PHYSICIAN STATEMENT I saw and evaluated the patient. I reviewed the resident's note and discussed the case with the resident. I agree with the resident's findings and plan as documented. SUBJECTIVE: OBJECTIVE: ASSESSMENT AND PLAN:
== END 2019-01-14 16:29 | disposition home or self-care (01) | DRG 195 ==
LOC: JER 21:25 → JERBED 01-10 01:45 → J8W 01-10 04:39
PROVIDERS: ADMIT Internal Medicine; ATTEND Internal Medicine
DX: J18.9 Pneumonia, unspecified organism (principal); E78.5 Hyperlipidemia, unspecified; I10 Essential (primary) hypertension; A60.00 Herpesviral infection of urogenital system, unspecified; R76.11 Nonspecific reaction to tuberculin skin test without active tuberculosis; F17.210 Nicotine dependence, cigarettes, uncomplicated; B19.20 Unspecified viral hepatitis C without hepatic coma; Z21 Asymptomatic human immunodeficiency virus [HIV] infection status
CPT/HCPCS: 36415; 71046-TC-FY; 71275-TC; 80048; 80053; 83735; 84100; 85025; 85027; 86359; 86360; 86480; 87040; 87070; 87116; 87205; 87206; 87536; 87899; 93005; 93010; 94640; 99281-25; 99282-25; Q0162

== ENCOUNTER 2021-01-09 13:28 | Emergency (ER) | payer OTHER ==
[2021-01-09 13:35] VITALS: BP 135/78; PULSE 85; TEMP 98.4; BMI 24.9
== END 2021-01-09 15:19 | disposition home or self-care (01) ==
LOC: JERFT 13:28
DX: J06.9 Acute upper respiratory infection, unspecified (principal); Z11.52 Encounter for screening for COVID-19
CPT/HCPCS: 99283-25; C9803; U0003; U0005